=== PATIENT | female | born 1960 | race Caucasian/White ===

== ENCOUNTER 2021-04-29 09:59 | Outpatient (CLI) | payer BC, SELFPAY ==
--- NOTE | ~2021-04-29 | DEXA_ITS ---
Bone Density Report Name: Maria Teresa Castillo Age: 60 Sex: Female Ethnicity: White Date of : 1960 Indication: osteopenia; postmenopausal Referring Provider: Natasha Luu Study: Bone densitometry was performed. Exam Date: April 29, 2021 Accession number: [id number] Bone Density: Region BMD T-score Z-score Classification AP Spine (L1-L4) 0.888 -1.4 0.0 Osteopenia Femoral Neck (Left) 0.805 -0.4 0.9 Normal Total Hip (Left) 0.986 0.4 1.3 Normal Total Hip Bilateral Avg 0.976 0.3 1.3 Normal Femoral Neck (Right) 0.803 -0.4 0.9 Normal Total Hip (Right) 0.965 0.2 1.2 Normal World Health Organization criteria for BMD impression classify patients as: Normal (T-score at or above -1.0), Osteopenia (T-score between -1.0 and -2.5), or Osteoporosis (T-score at or below -2.5). 10-year Fracture Risk(1): Major Osteoporotic Fracture 6.4% Hip Fracture 0.2% Reported Risk Factors: [place] (), Neck BMD=0.803, BMI=31.9 (1) FRAX(R) Version 3.08. Fracture probability calculated for an untreated patient. Fracture probability may be lower if the patient has received treatment. Previous Exams: Region Exam Age BMD T-score BMD Change BMD Change Date g/cm2 vs Baseline vs Previous AP Spine(L1-L4) 04/29/2021 60 0.888 -1.4 -0.110(-11.0%) -0.034(-3.7%)* 12/02/2017 57 0.922 -1.1 -0.076(-7.6%)# -0.064(-6.5%)# 10/10/2012 52 0.985 -0.6 -0.012(-1.2%)# -0.012(-1.2%)# 01/08/2006 45 0.998 -0.4 Total Hip(Left) 04/29/2021 60 0.986 0.4 -0.127(-11.4%) -0.054(-5.2%)* 12/02/2017 57 1.040 0.8 -0.073(-6.5%)# -0.084(-7.5%)# 10/10/2012 52 1.124 1.5 0.012(1.1%)# 0.012(1.1%)# 01/08/2006 45 1.112 1.4 Total Hip(Right) 04/29/2021 60 0.965 0.2 -0.106(-9.9%)# -0.042(-4.1%)* 12/02/2017 57 1.006 0.5 -0.064(-6.0%)# -0.051(-4.9%)# 10/10/2012 52 1.058 0.9 -0.013(-1.2%)# -0.013(-1.2%)# 01/08/2006 45 1.070 1.1 *Denotes significance at 95% confidence level, LSC for AP Spine = 0.022 g/cm2, LSC for Total Hip = 0.027 g/cm2 Clinical Information Provided by Patient: Has used the following medications: Vitamin D Patient maximum height was 63.5 Menopause Age: 53 No regular weight bearing exercise Onset of menses at age 11 Number of children 3 Impression: The patient has low bone mass, based on the Total Spine T-score. The patient has an estimated ten-year risk of hip fracture of 0.2% and an estimated
== END 2021-04-29 10:00 | disposition home or self-care (01) ==
PROVIDERS: PCP Family Medicine; Visit Provider Student in an Organized Health Care Education/Training Program
DX: Z78.0 Asymptomatic menopausal state (principal); M85.88 Other specified disorders of bone density and structure, other site
CPT/HCPCS: 77080

== ENCOUNTER → 2021-08-26 02:23 | Outpatient (CLI) | payer BC, SELFPAY ==
[2021-08-27 12:27] LABS: SARS-CoV-2 RNA PCR Negative
== END ==
PROVIDERS: PCP Family Medicine; Visit Provider Family Medicine
DX: Z20.822 Contact with and (suspected) exposure to COVID-19 (principal)
CPT/HCPCS: C9803; U0003; U0005

== ENCOUNTER 2021-09-08 11:15 | Emergency (ER) | payer BC, SELFPAY ==
[2021-09-08 11:47] VITALS: BP 148/71; PULSE 75; RESP 15; TEMP 37.1; O2SAT 98
--- NOTE | 2021-09-08 12:09 | ED.EPISTAXIS ---
HPI - Epistaxis General Chief complaint: Epistaxis Stated complaint: NOSEBLEED X2.5HOURS Time Seen by Provider: 09/08/21 11:53 Source: patient Mode of arrival: ambulatory Limitations: no limitations History of Present Illness HPI Narrative: Patient is a 61-year-old female complaining of nosebleed that started this morning. Patient states that she has had similar episodes in the past. Patient states it runs in the family because of the blood vessels close to the front . Patient denies being on any oral anticoagulants. He denies taking any antiplatelet drugs. Patient denies any injury to the area. Patient denies hemoptysis, hematemesis, melena or hematochezia. Related Data Home Medications Medication Instructions Recorded Confirmed amlodipine 5 mg tablet 5 mg PO DAILY 02/26/20 atenolol 25 mg tablet 25 mg PO DAILY 02/26/20 cholecalciferol (vitamin D3) 125 125 mcg PO DAILY 02/26/20 mcg (5,000 unit) capsule glucosamine-chondroitin 250 mg-200 2 tablet PO TID 02/26/20 mg tablet hydrochlorothiazide 25 mg tablet 25 mg PO DAILY 02/26/20 lansoprazole 15 mg capsule,delayed 15 mg PO DAILY 02/26/20 release loratadine 10 mg tablet 10 mg PO DAILY 02/26/20 metformin 500 mg tablet 500 mg PO DAILY 02/26/20 multivitamin 1 tablet PO DAILY 02/26/20 rosuvastatin 20 mg tablet 20 mg PO DAILY 03/12/21 Allergies Allergy/AdvReac Type Severity Reaction Status Date / Time Sulfa (Sulfonamide Allergy Mild HIVES Verified 09/08/21 11:47 Antibiotics) sulfamethoxazole Allergy Mild HIVES Verified 09/08/21 11:47 azithromycin Allergy Unknown unknown Verified 09/08/21 11:47 latex Allergy Unknown unknwn Verified 09/08/21 11:47 levofloxacin Allergy Unknown Unknown Verified 09/08/21 11:47 sulfamethizole Allergy Unknown unknown Verified 09/08/21 11:47 trimethoprim Allergy Unknown Unknown Verified 09/08/21 11:47 Review of Systems Review of Systems: All systems reviewed & are unremarkable except as noted in HPI and below Constitutional: Constitutional: Denies body ache(s), Denies chills, Denies excessive sweating, Denies fatigue, Denies fever(s), Denies headache(s), Denies lethargy, Denies malaise, Denies weakness and Denies weight loss Eyes: Eyes: Denies blurry vision, Denies change in vision and Denies loss of vision ENT: Denies dizziness, Denies ear discharge, Denies headache(s), Denies lip swelling, Denies nasal congestion, Denies neck pain, Denies throat swelling and Denies tongue swelling Cardiovascular: Cardiovascular: Denies chest pain, Denies chest pain at rest, Denies chest pain with activity, Denies diaphoresis, Denies rapid heart rate, Denies edema, Denies irregular heart rhythm, Denies lightheadedness, Denies palpitations, Denies dyspnea and Denies dyspnea on exertion Respiratory: Respiratory: Denies chest congestion, Denies cough, Denies hemoptysis, Denies dyspnea and Denies dyspnea on exertion Gastrointestinal: Gastrointestinal: Denies abdominal pain, Denies melena, Denies hematochezia, Denies diarrhea, Denies nausea, Denies vomiting and Denies hematemesis Musculoskeletal: Musculoskeletal: Denies abnormal gait, Denies deformity, Denies joint swelling, Denies limited range of motion, Denies neck pain and Denies numbness Neurologic: Denies Abnormal speech present, Denies abnormal gait, Denies confusion, Denies dizziness, Denies headache(s), Denies focal weakness, Denies loss of vision, Denies numbness, Denies Other visual disturbances, Denies Sensory deficit (Neuro) and Denies weakness Psychiatric: Psychiatric: Denies confusion, Denies depression, Denies auditory hallucinations, Denies homicidal ideation and Denies suicidal ideation Endocrine: Endocrine: Denies cold intolerance, Denies excessive sweating, Denies fatigue, Denies heat intolerance and Denies palpitations Hematologic/Lymphatic: Hematologic/Lymphatic: Denies easy bleeding and Denies easy bruising Allergic/Immunologic: Allergic/Immunologic: Denies lip swelling, Denies t
[2021-09-08] MEDS: OXYMETAZOLINE HCL 0.05% NAS 15 ML BTL (*BKC) 2 SPRAY NASAL (12:15)
[2021-09-08 12:56] LABS: Basophils Percent Auto 0.5 % (0.2-1.2); Eosinophils Absolute Auto 0.2 K/mm3 (0-0.3); Eosinophils Percent Auto 2.4 % (0-4.4); Immature Granulocyte Absolute 0.05 K/mm3 (0.00-0.031); Immature Granulocyte Percent A 0.6 % (0-0.5); Lymphocytes Absolute Auto 2.21 K/mm3 (0.9-3.2); Lymphocytes Percent Auto 28.3 % (18.3-44.2); Mean Corpuscular HGB Conc 33.3 g/dl (32-36); Mean Corpuscular Hemoglobin 29.1 pg (26-34); Mean Corpuscular Volume 87.2 fl (80-100); Mean Platelet Volume 9.8 fl (7.4-10.4); Monocytes Absolute Auto 0.5 K/mm3 (0.1-0.6); Monocytes Percent Auto 6.8 % (2.6-8.5); Neutrophils Absolute Auto 4.8 K/mm3 (1.3-6.7); Neutrophils Percent Auto 61.4 % (45.5-73.1); Platelet Count Result 306 k/mm3 (150-375); Red Blood Count 4.47 M/mm3 (4.2-5.4); Red Cell Distribution Width 14.2 % (11.5-14.5); White Blood Count 7.8 K/mm3 (4.5-10.0)
[2021-09-08 13:09] LABS: Prothrombin Time 13.2 Seconds (11.1-14.7)
[2021-09-08 13:10] LABS: Alanine Aminotransferase 40 U/L (4-35); Albumin Level 4.8 g/dL (3.5-5.1); Alkaline Phosphatase 73 U/L (38-126); Anion Gap 13 mmol/L (8-16); Aspartate Amino Transferase 41 U/L (14-36); Bilirubin,Total 0.5 mg/dL (0.2-1.3); Blood Urea Nitrogen 17 mg/dL (7-17); Calcium 9.4 mg/dL (8.4-10.2); Carbon Dioxide 24 mmol/L (22-30); Chloride 100 mmol/L (98-107); Estimated CRCL calculation 98 ml/min; Estimated Glomerular Filt Rate > 60; Glucose 134 mg/dL (65-110); Partial Thromboplastin Time 28.5 SECONDS (22.3-36.8); Sodium 137 mmol/L (137-145)
== END 2021-09-08 14:30 | disposition home or self-care (01) ==
PROVIDERS: Emergency Provider Emergency Medicine; PCP Family Medicine
DX: R04.0 Epistaxis (principal); E78.5 Hyperlipidemia, unspecified; I10 Essential (primary) hypertension; Z79.84 Long term (current) use of oral hypoglycemic drugs
CPT/HCPCS: 36415; 80053; 85025; 85610; 85730; 99283; A9270

== ENCOUNTER 2022-11-01 00:05 | Day surgery (SDC) | payer BC, SELFPAY ==
[2022-10-18 09:58] VITALS: BMI 31.0
[2022-11-01 06:43] VITALS: BP 126/66; PULSE 64; RESP 16; TEMP 36.4; O2SAT 99; BMI 30.5
[2022-11-01] MEDS: LACTATED RINGERS 1,000 ML 150 ML IV CONT (06:54)
[2022-11-01 06:57] LABS: Glucose Point of Care 124 mg/dl (65-105)
--- NOTE | 2022-11-01 07:47 | WPDANESEPPF ---
Anes - Initial Pre Proc Eval Procedure: Operation Date: 11/01/22 08:00 Proposed Procedures p Colonoscopy - Jason Stapleton MD Date/Time: 11/01/22 07:47 Surgeon: Jason Stapleton MD Pre Op Diagnosis: family hx colon ca Patient Data Age: 62 Gender: F Height: 1.6 m Weight: 78.3 kg Last Vital Signs Temp 36.4 C 11/01/22 06:43 Pulse 64 11/01/22 06:43 Resp 16 11/01/22 06:43 BP 126/66 11/01/22 06:43 Pulse Ox 99 11/01/22 06:43 O2 Del Method Room Air 11/01/22 06:43 Allergies Allergy/AdvReac Type Severity Reaction Status Date / Time azithromycin Allergy Intermediate Hives Verified 11/01/22 06:42 levofloxacin Allergy Intermediate Hives Verified 11/01/22 06:42 sulfamethizole Allergy Intermediate Hives Verified 11/01/22 06:42 trimethoprim Allergy Intermediate Hives Verified 11/01/22 06:42 Sulfa (Sulfonamide Allergy Mild HIVES Verified 11/01/22 06:42 Antibiotics) sulfamethoxazole Allergy Mild HIVES Verified 11/01/22 06:42 latex AdvReac Intermediate Redness of Verified 11/01/22 06:42 Skin Home Medications Medication Instructions Recorded Confirmed Type amlodipine 5 mg tablet 5 mg PO DAILY 02/26/20 11/01/22 History atenolol 25 mg tablet 25 mg PO DAILY 02/26/20 11/01/22 History cholecalciferol (vitamin D3) 125 125 mcg PO DAILY 02/26/20 11/01/22 History mcg (5,000 unit) capsule hydrochlorothiazide 25 mg tablet 25 mg PO DAILY 02/26/20 11/01/22 History loratadine 10 mg tablet (Claritin) 10 mg PO DAILY 02/26/20 11/01/22 History metformin 500 mg tablet 500 mg PO DAILY 02/26/20 11/01/22 History multivitamin (Multiple Vitamins 1 tablet PO DAILY 02/26/20 11/01/22 History tablet) rosuvastatin 20 mg tablet (Crestor) 20 mg PO DAILY 03/12/21 11/01/22 History glucosamine 750 [id number] 1 tablet PO DAILY 09/20/22 11/01/22 History no1 644 mg-C 30 mg-niraj 1 mg tablet (Osteo Bi-Flex Triple Strength) valacyclovir 500 mg tablet 500 mg PO BID PRN FLARE UP 09/20/22 11/01/22 History (Valtrex) lansoprazole 30 mg capsule,delayed 30 mg PO DAILY 10/18/22 11/01/22 History release Laboratory Tests 11/01/22 06:49 POC Capillary Glucose 124 mg/dl H mg/dl (65-105) Patient hx anesthesia problems: none Family hx anesthesia problems: none Results Review: All pre-operative results and documents have been reviewed as part of the pre-operative evaluation. [facility] Past Medical History Medical History (Updated 09/20/22 @ 15:07 by Juan Escobar MD) Abnormal results of liver function studies Allergic rhinitis, unspecified Encounter for gynecological examination (general) (routine) without abnormal findings Family history of colon cancer Gastro-esophageal reflux disease without esophagitis Genital herpes Hyperlipidemia Hypertension Osteoarthritis of knee, unspecified Prediabetes Type 2 diabetes mellitus Surgical History Surgical History History of arthroscopy of left knee History of section x 3 History of dilation and curettage History of tubal ligation Family History Family History Mother Hypertension Family history of elevated blood lipids Family history of diabetes mellitus in first degree relative Grandparent Cerebrovascular accident, Onset Age: 90 Family history of malignant neoplasm of breast, Onset Age: 81 Father Carcinoma of colon Family history of diabetes mellitus in first degree relative Social History Social History Smoking status: Never smoker Second hand tobacco smoke exposure: No Alcohol intake: current Substance use: never Substance use type: does not use Living arrangements: with family Spiritual care concerns: No Anes - Eval Final PreProcedure Day of Procedure 11/01/22 07:47 Patient weight: obese Heart: regular r
--- NOTE | 2022-11-01 07:57 | PM.HPGS ---
History of Present Illness History of Present Illness Consent: Risks, benefits, and alternatives have been discussed and questions answered. Patient agrees to proceed with procedure. Chief complaint: family hx colon ca Narrative: Maria Teresa Castillo is a 62 year old female Presents for screening colonoscopy. Family history is significant her father had colon cancer. Patient reports her current weight appetite and bowel movements are normal. Patient denies abdominal pain. She has had no bleeding. Family history is as stated. Review of Systems Review of Systems: Review of systems noncontributory. [facility] Past Medical History Medical History (Updated 09/20/22 @ 15:07 by Juan Escobar MD) Abnormal results of liver function studies Allergic rhinitis, unspecified Encounter for gynecological examination (general) (routine) without abnormal findings Family history of colon cancer Gastro-esophageal reflux disease without esophagitis Genital herpes Hyperlipidemia Hypertension Osteoarthritis of knee, unspecified Prediabetes Type 2 diabetes mellitus Surgical History Surgical History History of arthroscopy of left knee History of section x 3 History of dilation and curettage History of tubal ligation Family History Family History Mother Hypertension Family history of elevated blood lipids Family history of diabetes mellitus in first degree relative Grandparent Cerebrovascular accident, Onset Age: 90 Family history of malignant neoplasm of breast, Onset Age: 81 Father Carcinoma of colon Family history of diabetes mellitus in first degree relative Social History Social History Smoking status: Never smoker Second hand tobacco smoke exposure: No Alcohol intake: current Substance use: never Substance use type: does not use Living arrangements: with family Spiritual care concerns: No Meds Home Medications and Allergies Home Medications Medication Instructions Recorded Confirmed Type amlodipine 5 mg tablet 5 mg PO DAILY 02/26/20 11/01/22 History atenolol 25 mg tablet 25 mg PO DAILY 02/26/20 11/01/22 History cholecalciferol (vitamin D3) 125 125 mcg PO DAILY 02/26/20 11/01/22 History mcg (5,000 unit) capsule hydrochlorothiazide 25 mg tablet 25 mg PO DAILY 02/26/20 11/01/22 History loratadine 10 mg tablet (Claritin) 10 mg PO DAILY 02/26/20 11/01/22 History metformin 500 mg tablet 500 mg PO DAILY 02/26/20 11/01/22 History multivitamin (Multiple Vitamins 1 tablet PO DAILY 02/26/20 11/01/22 History tablet) rosuvastatin 20 mg tablet (Crestor) 20 mg PO DAILY 03/12/21 11/01/22 History glucosamine 750 ri-cklpkzhbcbp-iun 1 tablet PO DAILY 09/20/22 11/01/22 History no1 644 mg-C 30 mg-niraj 1 mg tablet (Osteo Bi-Flex Triple Strength) valacyclovir 500 mg tablet 500 mg PO BID PRN FLARE UP 09/20/22 11/01/22 History (Valtrex) lansoprazole 30 mg capsule,delayed 30 mg PO DAILY 10/18/22 11/01/22 History release Allergies Allergy/AdvReac Type Severity Reaction Status Date / Time azithromycin Allergy Intermediate Hives Verified 11/01/22 06:42 levofloxacin Allergy Intermediate Hives Verified 11/01/22 06:42 sulfamethizole Allergy Intermediate Hives Verified 11/01/22 06:42 trimethoprim Allergy Intermediate Hives Verified 11/01/22 06:42 Sulfa (Sulfonamide Allergy Mild HIVES Verified 11/01/22 06:42 Antibiotics) sulfamethoxazole Allergy Mild HIVES Verified 11/01/22 06:42 latex AdvReac Intermediate Redness of Verified 11/01/22 06:42 Skin Vital Signs Vital Signs - 24 hr 11/01/22 06:43 Temperature 97.6 F Pulse Rate 64 Respiratory Rate 16 Blood Pressure 126/66 Pulse Oximetry 99 Oxygen Delivery Room Air Exam Narrative: Physical exam reveals patient to be alert. Vital signs
[2022-11-01 08:20] VITALS: BP 108/60; PULSE 62; RESP 20; O2SAT 98
[2022-11-01 08:30] VITALS: BP 122/72; PULSE 56; RESP 22; O2SAT 98
[2022-11-01 08:40] VITALS: BP 122/72; PULSE 54; RESP 22; O2SAT 100
== END 2022-11-01 08:51 | disposition home or self-care (01) ==
PROVIDERS: PCP Family Medicine; Visit Provider Internal Medicine Gastroenterology
PROC: 0DJD8ZZ Inspection of Lower Intestinal Tract, Via Natural or Artificial Opening Endoscopic (ICD-10-PCS; CPT 45378; principal; 2022-11-01 08:00)
DX: Z12.11 Encounter for screening for malignant neoplasm of colon (principal); K64.8 Other hemorrhoids; K57.30 Diverticulosis of large intestine without perforation or abscess without bleeding; Z80.0 Family history of malignant neoplasm of digestive organs; Z79.84 Long term (current) use of oral hypoglycemic drugs; I10 Essential (primary) hypertension; E78.5 Hyperlipidemia, unspecified; E11.9 Type 2 diabetes mellitus without complications; K21.9 Gastro-esophageal reflux disease without esophagitis; B00.9 Herpesviral infection, unspecified; E66.9 Obesity, unspecified; Z68.30 Body mass index [BMI] 30.0-30.9, adult
CPT/HCPCS: 45378; 82948; J2704; J7120

== ENCOUNTER 2023-10-19 07:43 | Outpatient (CLI) | payer BC, SELFPAY ==
--- NOTE | ~2023-10-19 | DEXA_ITS ---
Bone Density Report Name: SHEILA ORONA Age: 63 Sex: Female Ethnicity: White Date of : 1960 Indication: osteopenia; Referring Provider: DEMETRIA CANNON Study: Bone densitometry was performed. Exam Date: October 19, 2023 Accession number: [id number] Bone Density: Region BMD T-score Z-score Classification AP Spine(L1-L4) 0.825 -2.0 -0.4 Osteopenia Femoral Neck (Left) 0.809 -0.4 1.1 Normal Total Hip (Left) 1.097 1.3 2.4 Normal Femoral Neck (Right) 0.828 -0.2 1.2 Normal Total Hip (Right) 1.021 0.6 1.8 Normal Total Hip Mean 1.059 1.0 2.1 Normal World Health Organization criteria for BMD impression classify patients as: Normal (T-score at or above -1.0), Osteopenia (T-score between -1.0 and -2.5), or Osteoporosis (T-score at or below -2.5). 10-year Fracture Risk(1): Major Osteoporotic Fracture 6.8% Hip Fracture 0.3% Reported Risk Factors: [place] (), Neck BMD=0.809, BMI=29.3 (1) FRAX(R) Version 3.08. Fracture probability calculated for an untreated patient. Fracture probability may be lower if the patient has received treatment. Previous Exams: Region Exam Age BMD T-score BMD Change BMD Change Date g/cm2 vs Baseline vs Previous AP Spine (L1-L4) 10/19/2023 63 0.825 -2.0 -0.096 (-10.4% -0.063 (-7.0%) 04/29/2021 60 0.888 -1.4 -0.034 (-3.7%) -0.034 (-3.7%) 12/02/2017 57 0.922 -1.1 Total Hip(Left) 10/19/2023 63 1.097 1.3 0.057 (5.5%)* 0.111 (11.2%)* 04/29/2021 60 0.986 0.4 -0.054 (-5.2%) -0.054 (-5.2%) 12/02/2017 57 1.040 0.8 Total Hip(Right) 10/19/2023 63 1.021 0.6 0.014 (1.4%) 0.056 (5.8%)* 04/29/2021 60 0.965 0.2 -0.042 (-4.1%) -0.042 (-4.1%) 12/02/2017 57 1.006 0.5 *Denotes significance at 95% confidence level, LSC for AP Spine = 0.022 g/cm2, LSC for Total Hip = 0.027 g/cm2 Clinical Information Provided by Patient: Has used the following medications: Vitamin D Patient maximum height was 63.5 Menopause Age: 53 No regular weight bearing exercise Onset of menses at age 11 Number of children 3 Impression: The patient has low bone mass, based on the Total Spine T-score. The patient has an estimated ten-year risk of hip fracture of 0.3% and an estimated ten-year risk of major fracture of 6.8%, based on the WHO FRAX algorithm. The BMD for the AP Spine (L1-L4) decreased, changing by -7.0% since the last DXA exam. Discussion: BONE DENSI
== END 2023-10-19 07:44 | disposition home or self-care (01) ==
PROVIDERS: PCP Family Medicine; Visit Provider Obstetrics & Gynecology
DX: M85.89 Other specified disorders of bone density and structure, multiple sites (principal)
CPT/HCPCS: 77080

== ENCOUNTER 2024-05-01 11:36 | Outpatient (CLI) | payer BC, SELFPAY ==
--- NOTE | ~2024-05-01 | XR_ITS ---
EXAMINATION: XR chest 2V 05/01/2024 12:10 INDICATION: Cough PROCEDURE: 2 view chest COMPARISON: 12/07/2011 FINDINGS: The lungs are clear. The cardiomediastinal silhouette is within normal limits. There are no pleural effusions. There is no pneumothorax suspected. IMPRESSION: 1: NO ACUTE CARDIOPULMONARY DISEASE. Reviewed, dictated and finalized at location B.
== END 2024-05-01 11:37 | disposition home or self-care (01) ==
PROVIDERS: PCP Family Medicine; Visit Provider Family Medicine
DX: R05.9 Cough, unspecified (principal)
CPT/HCPCS: 71046

== ENCOUNTER 2024-07-13 13:42 | Outpatient (CLI) | payer BC, SELFPAY ==
--- NOTE | ~2024-07-13 | US_ITS ---
EXAM: PELVIC ULTRASOUND HISTORY: R10.2 - Pelvic and perineal pain 4 para 3. Postmenopausal. Post right oophorectomy COMPARISON: None. FINDINGS: UTERUS: 6.3 x 2.8 x 3.9 cm. The uterus is anteverted and anteflexed. The endometrial complex measures 4.4 mm - not thickened. Multiple fibroids are identified within the uterus. The largest is within the subserosal space along the posterior fundus measuring 12 x 6 x 13 mm. RIGHT OVARY: Surgically absent. LEFT OVARY: The left ovary is mildly increased in size (for patient of this age) measuring 3.1 x 1.5 x 2.7 cm Both arterial and venous flow are identified. Within the left adnexa is a rounded avascular focus with an echogenic rim measuring 13 x 12 x 14 mm, and is inseparable from the anterior margin of the left ovary. No free fluid is identified within the pelvis. IMPRESSION: Fibroid uterus. 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 Given the dense calcifications, MRI may not provide much additional information. Of note, multiple calcified phleboliths were identified on plain film evaluation of the abdomen and p margaux in 2011, but none meet the size criteria of the above abnormality. Reviewed, dictated and finalized at location A. [facility] IMPRESSION: Fibroid uterus. 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 Given t he dense calcifications, MRI may not provide much additional information. Of note, multiple calcified phleboliths were identified on plain film evaluatio n of the abdomen and pelvis in 2011, but none meet the size criteria of the abo ve abnormality.
== END 2024-07-13 13:43 | disposition home or self-care (01) ==
LOC: MICIMG 13:43
PROVIDERS: PCP Family Medicine; Visit Provider Nurse Practitioner Family
DX: D25.9 Leiomyoma of uterus, unspecified (principal); N83.8 Other noninflammatory disorders of ovary, fallopian tube and broad ligament
CPT/HCPCS: 76830; 76856

== ENCOUNTER 2024-07-18 13:53 | Outpatient (CLI) | payer BC, SELFPAY ==
[2024-07-19 06:54] LABS: CA-125 6 U/mL (<35)
== END 2024-07-18 13:54 | disposition home or self-care (01) ==
LOC: ANHLAB 13:54
PROVIDERS: PCP Family Medicine; Visit Provider Obstetrics & Gynecology
DX: N83.8 Other noninflammatory disorders of ovary, fallopian tube and broad ligament (principal)
CPT/HCPCS: 36415; 86304

== ENCOUNTER 2024-10-21 21:25 | Emergency (ER) | payer BC, SELFPAY ==
--- OUTSIDE RECORDS SUMMARY | 2024-10-21 21:27 | XMS_ITS | Referral Summary ---
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 Name Role Phone Juan Escobar MD Primary Care Provider [phone] Aniceto Knapp MD Unavailable [phone] Allergies Active Allergy Reactions Criticality Noted Date Comments Azithromycin Sulfa (Sulfonamide Antibiotics) Sulfamethoxazole-Trimethoprim Medications amlodipine-ator vastatin (CADUET) 5-40 mg per tablet Take 1 tablet by mouth daily 01/01/2019 Active atenolol (TENORMIN) 25 mg tablet Take 1 tablet (25 mg total) by mouth daily 11/22/2018 Active cholecalciferol (VITAMIN D-3) 10,000 unit tablet Active hydroCHLOROthia zide (HYDRODIURIL) 25 mg tablet Take 1 tablet (25 mg total) by mouth daily 11/22/2018 Active lansoprazole (PREVACID) 30 mg capsule Take 1 capsule (30 mg total) by mouth daily 01/01/2019 Active metFORMIN (GLUCOPHAGE) 500 mg tablet Active amLODIPine (NORVASC) 5 mg tablet Take 1 tablet (5 mg total) by mouth daily 02/05/2020 Active atorvastatin (LIPITOR) 20 mg tablet Take 1 tablet (20 mg total) by mouth daily 02/05/2020 Active rosuvastatin (CRESTOR) 20 mg tablet Take 1 tablet (20 mg total) by mouth daily 04/02/2023 Active valACYclovir (VALTREX) 500 mg tablet Take 1 tablet (500 mg total) by mouth daily 06/01/2023 Active Active Problems Problem Noted Date Diagnosed Date History of abnormal mammogram 03/06/2021 Breast cancer screening by mammogram 03/06/2021 Fibrocystic breast changes of both breasts 01/26 Abnormal mammogram 06/19/2010 Social History Tobacco Use Types Packs/Day Years Used Date Smoking Tobacco: Never Tobacco Cessation:Counseling Given: Not Answered Personal Safety Answer Date Recorded Getting School Help Needed Not on file 11/11 Comments No Sex and Gender Information Value Date Recorded Sex Assigned at Not on file Legal 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 Gender Identity Not on file Sexual Orientation Not on file Last Filed Vital Signs Vital Sign Reading Time Taken Comments Blood Pressure - - Pulse - - Temperature - - Respiratory Rate - - Oxygen Saturation - - Inhaled Oxygen Concentration - - Weight 81.6 kg (180 lb) 06/13/2023 2:39 PM CDT Height 160 cm (5' 3 ) 06/13/2023 2:39 PM CDT Body Mass Index 31.89 06/13/2023 2:39 PM CDT Plan of Treatment Not on file Procedures Procedure Name Priority Date/Time Associated Diagnosis Comments SCREENING MAMMOGRAM BILATERAL W SHARAN Schedule Routine, Read Routine (OP Routine) 06/15/2024 12:26 PM CDT Fibrocystic breast changes of both breasts from Last 3 Months or Most Recently Relevant to Health Maintenance Results * Screening Mammogram Bilateral W Sharan (06/15/2024 12:26 PM CDT) Anatomical Region Laterality Modality Breast Bilateral Mammography Narrative 06/18/2024 9:45 AM CDT Mammogram Technique: Bilateral Digital Breast Tomosynthesis, Bilateral C-view 2D Screening mammogram. Views obtained: bilateral craniocaudal and bilateral mediolateral oblique. Computer Aided Detection was performed. Mammogram Findings: The present examination has been compared to prior imaging studies performed at [facility] on 04/26/2022, 06/13/2023 and 07/08/2023. There are scattered areas of fibroglandular density. There are multiple masses in the left breast. There are no significant changes from the prior study. There is no suspicious abnormality in either breast. Impression: There is no mammographic evidence of malignancy. Annual screening mammography is recommended. OVERALL FINAL ASSESSMENT: BI-RADS CATEGORY 2: Benign. Procedure Note Trice Monroy MD - 06/18/2024 Mammogram Technique: Bilateral Digital Breast Tomosynthesis, Bilateral C-view 2D Screening mammogram. Views obtained: bilateral craniocaudal and bilateral mediolateral oblique. Computer Aided Detection was performed. Mammogram Findings: The present examination has been compared to prior imaging studies performed at [facility] on 04/26/2022, 06/13/2023 and 07/08/2023. There are scattered areas of fibroglandular density. There are multiple masses in the left breast. There are no significant changes from the prior study. There is no suspicious abnormality in either breast. Impression: There is no mammographic evidence of malignancy. Annual screening mammography is recommended. OVERALL FINAL ASSESSMENT: BI-RADS CATEGORY 2: Benign. Mery Tovar NP IMG MAMMO PROCEDURES Final Result from Last 3 Months or Most Recently Relevant to Health Maintenance Insurance [facility] ANTHEM ACCESS ANTHEM TRADITIONAL ACCESS OOS ANTHEM ACCESS Member Subscriber Plan / Payer ( fective 2015-Present) Name:Maria Teresa Orona Member ID:[id number] Relation to Subscriber:Spouse Name:TIO ORONA Subscriber ID:[id number] Date of :1962 (Home) Address: [facility] [place] [address] Payer ID:[id number] (NAIC) Type:[employer] Address: [address] [place] [id number] Care Teams Power Truck Driver Relationship Specialty Start Date End Date Juan Escobar MD [address] [place] [id number] PCP - General 12/10/16 Aniceto Knapp MD [address] [facility] [address] [facility] [address] [place] [address] Referring Physician Obstetrics and Gynecology 06/13/23
--- OUTSIDE RECORDS SUMMARY | 2024-10-21 21:28 | XMS_ITS | Clinical Summary ---
Author Organization [facility] Address [address] [place] [address] Care Team Providers Care Rolling Machine Operator Automatic Name Role Phone Juan Escobar MD Primary Care Provider [phone] Aniceto Knapp MD Unavailable [phone] Allergies Active Allergy Reactions Criticality Noted Date [...] of both breasts 01/26 Abnormal mammogram 06/19/2010 Family History Medical History Relation Name Comments Colon cancer Father Adenocarcinoma of colon - (Added by TW Conv)/Colon adenocarcinoma - (Added by TW Conv)/Adenocarcinoma of colon - (Added by TW Conv)/Colon adenocarcinoma - (Added by TW Conv) Relation Name Status Comments Father Social History Tobacco Use Types Packs/Day Years Used Date Smoking Tobacco: Never Tobacco Cessation:Counseling Given: Not Answered Personal Safety Answer Date Recorded Getting School Help Needed Not on file 11/11 Comments No Sex and Gender Information Value Date Recorded Sex Assigned at Not on file 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 Gender Identity Not on file Sexual Orientation Not on file Obstetrics History Last Filed Vital Signs Vital Sign Reading Time Taken Comments Blood Pressure - - Pulse - - Temperature - - Respiratory Rate - - Oxygen Saturation - - Inhaled Oxygen Concentration - - Weight 81.6 kg (180 lb) 06/13/2023 2:39 PM CDT Height 160 cm (5' 3 ) 06/13/2023 2:39 PM CDT Body Mass Index 31.89 06/13/2023 2:39 PM CDT Plan of Treatment Health Maintenance Due Date Last Done Comments Cervical Cancer Screening 1960 Colon Cancer Screening-Colonoscopy 1960 Depression Screening 1960 Hepatitis C Screening 1960 Hepatitis B Screening 1978 Regular Well Visit/Exam 18-64 1978 Zoster Vaccine (1 of 2) 2010 Influenza Vaccine (#1) 2024 9, 05/27/2017, 06/18/2015, Additional history exists Breast Cancer Screening-Mammogram 06/15/2025 06/15/2024, 06/13/2023, 04/26/2022, Additional history exists DTaP/Tdap/Td Vaccine (2 - Td or Tdap) 07/20/2029 07/20/2019 Pneumococcal vaccine <65 Aged Out No longer eligible based on patient's age to complete this topic Procedures Procedure Name Priority Date/Time Associated Diagnosis [...] compared to prior imaging studies performed at [facility] on 04/26/2022, 06/13/2023 and 07/08/2023. There are [...] compared to prior imaging studies performed at [facility] on 04/26/2022, 06/13/2023 and 07/08/2023. There are [...] Most Recently Relevant to Health Maintenance Insurance ANTHEM ACCESS ANTHEM ACCESS ANTHEM TRADITIONAL BLUE ACCESS OOS ANTH ACCESS Care Teams Rolling Machine Operator Automatic Relationship Specialty Start Date End Date Juan Esocbar MD [address] [place] [id number] PCP - General 12/10/16 Aniceto Knapp MD [address] [address] Referring Physician Obstetrics and Gynecology 06/13/23
[2024-10-21 21:31] VITALS: BP 140/68; PULSE 74; RESP 18; TEMP 36.7; O2SAT 97
--- NOTE | 2024-10-22 00:42 | PC.NURSE ---
Pt's came to ED desk stating they do not want to wait to be seen by MD. Pt AOx4. GCS 15. Pt ambulatory.
--- OUTSIDE RECORDS SUMMARY | 2024-10-22 00:49 | XMS_ITS | Clinical Summary ---
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 Gender Identity Not on file Sexual Orientation Not on file Plan of Treatment Health Maintenance Due Date Last Done Comments Hepatitis C Virus (HCV) Screening 1960 Pap Smear 1981 Cervical Cancer Screening (CCS) 1990 HPV/Cotest 1990 Colonoscopy 2005 Colorectal Cancer Screening 2005 Cologuard 2010 Immunochemical Fecal Occult Blood 2010 Mammogram 2010 Pneumococcal Immunization (50+ years) (1 of 1 - PCV) 2010 Zoster Immunization (1 of 2) 2010 Influenza Immunization (#1) 2024 10/0 12/2019, 06/02/2019, 05/27/2017, Additional history exists SARS-COV-2 Immunization ( - season) 2024 09/18/2020 Respiratory Syncytial Virus (RSV) Immunization (Adult) (1 - 1-dose 75+ series) 2035 DTaP/Tdap/Td Immunization Discontinued 07/20/2019 TdaP Immunization Completed 07/20/2019 Hepatitis B Immunization Aged Out No longer eligible based on patient's age to complete this topic Meningococcal Immunization (ACWY) Aged Out No longer eligible based on patient's age to complete this topic Pneumococcal Immunization Combined Aged Out No longer eligible based on patient's age to complete this topic Rotavirus Immunization Aged Out No lo nger eligible based on patient's age to complete this topic
--- OUTSIDE RECORDS SUMMARY | 2024-10-22 00:49 | XMS_ITS | Referral Summary ---
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 There [...] compared to prior imaging studies performed at [facility] on 04/26/2022, 06/13/2023 and 07/08/2023. There [...] Most Recently Relevant to Health Maintenance Insurance [facility] ANTHEM ACCESS ANTHEM TRADITIONAL ACCESS OOS ANTHEM ACCESS Member Subscriber Plan / Payer ( fective 2015-Present) Name:Maria Teresa Orona Member ID:[id number] Relation to Subscriber:Spouse Name:TIO ORONA Subscriber ID:[id number] Date of :1962 (Home) Address: [facility] [place] [address] Payer ID:[id number] (NAIC) Type:BC ALLIANCE Address: [address] [place] [id number] Care Teams Vehicle Detailer Relationship Specialty Start Date End Date Juan Escobar MD [address] [place] [address] PCP - General 12/10/16 Aniceto Knapp MD [address] [facility] [address] [facility] [address] [place] [address] Referring Physician Obstetrics and Gynecology 06/13/23
--- OUTSIDE RECORDS SUMMARY | 2024-10-22 00:49 | XMS_ITS | Clinical Summary ---
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 There [...] to prior imaging studies performed at [facility] on 04/26/2022, 06/13/2023 and 07/08/2023. There [...] BLUE ACCESS OOS ANTH ACCESS Care Teams Electrical And Instrument Mechanic Relationship Specialty Start Date End Date Juan Escobar MD [address] [place] [address] PCP - General 12/10/16 Aniceto Knapp MD [address] [address] Referring Physician Obstetrics and Gynecology 06/13/23
== END 2024-10-22 00:54 | disposition left against medical advice (07) ==
LOC: ANHED 10-22 00:47
PROVIDERS: PCP Family Medicine
DX: R11.2 Nausea with vomiting, unspecified (principal)
CPT/HCPCS: 99199

== ENCOUNTER 2024-11-16 11:41 | Outpatient (CLI) | payer BC, SELFPAY ==
--- NOTE | ~2024-11-16 | US_ITS ---
EXAMINATION: US pelvic complete w TV INDICATION: Follow-up left ovarian Comparison:Ultrasound dated 07/13/2024 TECHNIQUE: Multiple transabdominal and endovaginal sonographic images of the pelvis performed. FINDINGS: The uterus measures 7.2 x 3 x 4.3 cm. There is a small uterine fibroid posteriorly measurin g 12 mm. The endometrial complex measures 5 mm. The right ovary is surgically absent. Left ovary measures 3.1 x 2.3 x 2.8 cm with normal vascular nolan w. There is a calcified mass in the left ovary measuring 1.3 cm, nonspecific. Recommend correlation w ith MRI. There is no free fluid in the pelvis. There are no abnormal masses seen on either side. IMPRESSION: 1. Small uterine fibroid posteriorly measuring 12 mm. 2: Thickened endomtrial complex. The differential diagnosis includes endometrial hyperplasia, polyp a nd carcinoma. Biopsy is recommended. 3: Partially calcified 1.3 cm left ovarian mass, nonspecific. Consider correlation with MRI with and without contrast. Reviewed, dictated and finalized at location B. IMPRESSION: 1. Small uterine fibroid posteriorly measuring 12 mm. 2: Thickened endomtrial complex. The differential diagnosis includes endometria l hyperplasia, polyp and carcinoma. Biopsy is recommended. 3: Partially calcified 1.3 cm left ovarian mass, nonspecific. Consider correlat ion with MRI with and without contrast.
== END 2024-11-16 11:42 | disposition home or self-care (01) ==
LOC: MICIMG 11:41
PROVIDERS: PCP Family Medicine; Visit Provider Obstetrics & Gynecology
DX: D25.9 Leiomyoma of uterus, unspecified (principal); R93.89 Abnormal findings on diagnostic imaging of other specified body structures; N83.8 Other noninflammatory disorders of ovary, fallopian tube and broad ligament
CPT/HCPCS: 76830; 76856

== ENCOUNTER 2025-06-12 10:24 | Outpatient (CLI) | payer BC, SELFPAY ==
--- NOTE | 2025-06-12 10:30 | ECG_ITS ---
Test Date: 2025-06-12 10:34:07 Measurements Intervals [place] Rate: 68 P: 60 IA: 208 QRS: 30 QRSD: 88 T: 53 QT: 380 QTc: 406 Interpretive Statements SINUS RHYTHM BASELINE ARTIFACT- I, II, III, AVR, AVL, AVF NORMAL ECG No previous ECG available for comparison Electronically Signed On 06-12-2025 10:46:05 CDT by Rigoberto Gutierrez D.O.
[2025-06-12 11:04] LABS: Anion Gap 12 mmol/L (4-12); Blood Urea Nitrogen 17 mg/dL (7-17); Calcium 9.1 mg/dL (8.4-10.2); Carbon Dioxide 25 mmol/L (22-30); Chloride 101 mmol/L (98-107); Estimated Glomerular Filt Rate > 60; Glucose 163 mg/dL (65-110); Potassium 4.0 mmol/L (3.4-5.0); Sodium 138 mmol/L (137-145)
--- OUTSIDE RECORDS SUMMARY | 2025-06-12 12:14 | XMS_ITS | Clinical Summary ---
Author Organization [facility] Address [address] [place] [address] Care Team Providers Care Mangle Press Catcher Name Role Phone Juan Escobar MD Primary Care Provider [phone] Aniceto Knapp MD Unavailable [phone] Allergies Active Allergy Reactions Criticality Noted Date Comments Azithromycin Sulfa (Sulfonamide Antibiotics) Sulfamethoxazole-Trimethoprim Medications amlodipine-ator vastatin (CADUET) 5-40 mg per tablet Take 1 tablet by mouth daily 01/01/2019 Active atenolol (TENORMIN) 25 mg tablet Take 1 tablet (25 mg total) by mouth daily 1 11/22/2018 Active cholecalciferol (VITAMIN D-3) 10,000 unit [...] on file 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 Gender Identity Not on file Sexual Orientation Not on file Obstetrics History Last Filed Vital Signs Vital Sign Reading Time Taken Comments Blood Pressure - - Pulse - - Temperature - - Respiratory Rate - - Oxygen Saturation - - Inhaled Oxygen Concentration - - Weight 81.6 kg (180 lb) 06/13/2023 2:39 PM CDT Height 160 cm (5' 3) 06/13/2023 2:39 PM CDT Body Mass Index 31.89 06/13/2023 2:39 PM CDT Plan of Treatment Health Maintenance Due Date Last Done Comments Cervical Cancer Screening 1960 Colon Cancer Screening-Colonoscopy 1960 Depression Screening 1960 Hepatitis C Screening 1960 Hepatitis B Screening 1978 Regular Well Visit/Exam 18-64 1978 Zoster Vaccine (1 of 2) 2010 Influenza Vaccine (#1) 2025 9, 05/27/2017, 06/18/2015, Additional history exists Breast [...] compared to prior imaging studies performed at [facility] on 04/26/2022, 06/13/2023 and 07/08/2023. There [...] compared to prior imaging studies performed at [facility] on 04/26/2022, 06/13/2023 and 07/08/2023. There [...] BLUE ACCESS OOS ANTH ACCESS Care Teams Mangle Press Catcher Relationship Specialty Start Date End Date Juan Escobar MD [address] [place] [address] PCP - General 12/10/16 Aniceto Knapp MD [address] [address] Referring Physician Obstetrics and Gynecology 06/13/23
--- OUTSIDE RECORDS SUMMARY | 2025-06-12 12:14 | XMS_ITS | Clinical Summary ---
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 Gender Identity Not on file Sexual Orientation Not on file Plan of Treatment Health Maintenance Due Date Last Done Comments Hepatitis C Virus (HCV) Screening 1960 Pap Smear 1981 Cervical Cancer Screening (CCS) 1990 HPV/Cotest 1990 Cologuard 2005 Colonoscopy 2005 Colorectal Cancer Screening 2005 Immunochemical Fecal Occult Blood 2005 Pneumococcal Immunization (50+ years) (1 of 1 - PCV) 2010 Zoster Immunization (1 of 2) 2010 Influenza Immunization (#1) 2025 100 02/2020, 06/02/2020, 06/02/2019, Additional history exists SARS-COV-2 Immunization ( - season) 2025 09/18/2020 Respiratory Syncytial Virus (RSV) Immunization (Adult) (1 - 1-dose 75+ series) 2035 DTaP/Tdap/Td Immunization Discontinued 07/20/2019 TdaP Immunization Completed 07/20/2019 Hepatitis B Immunization Aged Out No longer eligible based on patient's age to complete this topic Human Papillomavirus (HPV) Immunization Aged Out No longer eligible based on patient's age to complete this topic Meningococcal Immunization (ACWY) Aged Out No longer eligible based on patient's age to complete this topic Rotavirus Immunization Aged Out No lo nger eligible based on patient's age to complete this topic
== END 2025-06-12 10:25 | disposition home or self-care (01) ==
LOC: ANHSURGERY 10:27
PROVIDERS: Anesthesiology; PCP Family Medicine; Visit Provider Obstetrics & Gynecology
DX: Z01.818 Encounter for other preprocedural examination (principal); D25.9 Leiomyoma of uterus, unspecified; I10 Essential (primary) hypertension; Z79.899 Other long term (current) drug therapy
CPT/HCPCS: 36415; 80048; 86850; 86900; 86901; 93005

== ENCOUNTER 2025-06-19 00:05 | Day surgery (SDC) | payer BC, SELFPAY ==
[2025-06-11 10:17] VITALS: BMI 31.0
--- NOTE | 2025-06-11 10:17 | SUR.PREOP ---
[facility] has started construction of its new state of the art ER which will open Spring 2026. With this, we anticipate parking may be a challenge for some our surgical patients and families. Parking spaces are limited but are available for all Surgical, obstetrics, and ER patients sharing this lot. If you arrive and find you are having a hard time finding a parking space, please note that we understand the challenges, please drive around the hospital and park near Hospital Entrance 1. When you enter this entrance, you can ask a volunteer to direct or take you back to the surgical waiting area to check in. We appreciate everyone?s understanding of these expected challenges while we build for your future. Report to the Outpatient Waiting Room, entrance under the green pavilion located off [address], at time __6AM___ on date _06/19/25___. Planned Procedure Time: __730AM__.? Time changes happen often and if your time is changed the preop area will call you the afternoon before. - You and your visitor will be asked to self-screen and do not enter if you have any COVID symptoms. Please call surgeon if you need to reschedule. - A mask is optional within the hospital at this time. Patients may have clear liquids (water, carbonated beverages, clear teas, apple juice) until 3 hours prior to surgery with a maximum of 20 ounces. - No food from midnight until time of surgery and no smoking, or chewing tobacco (or any form of nicotine). No chewing gum, candy or mints. Take only the following medications with a SIP of water on the morning of surgery: _amlodipine, atenolol____ DO NOT STOP ANY OF YOUR OTHER PRESCRIPTION MEDICATIONS PRIOR TO SURGERY EXCEPT THE FOLLOWING Hold all vitamins and supplements for 3 days per anesthesiologist. Medications to discontinue per physician ___Pt stated Dr. Knapp is holding mounjaro last dose 05/30/25 Date to take last dose of vitamins__06/15/25 Please no make-up, nail vietnamese, hairspray, perfume, deodorant, or body powder the day of surgery.? No jewelry (including any body piercings) or valuables the day of surgery, leave them at home.? Please take a shower or bath the night before, or the morning of, surgery with an antibacterial soap.? Wear comfortable, loose fitting clothing.? - Jewelry must be removed prior to entering the operating room.? Rings and piercings that are not removed may be cut off. - The hospital will not accept responsibility for valuables.? - Please leave all valuables, including medications, at home the day of surgery. If you are going home after surgery, a licensed guard driver must drive you home.? - NO public transportation without another adult if you receive anesthesia. - We recommend that an adult stay with you for 24 hours following discharge. - We also recommend that you do not drive, make important decision, drink alcoholic beverages, or take any drugs that were not prescribed by your health care provider for at least 24 hours after your discharge time. Follow any additional instructions given to you from your surgeon. Telephone instructions given to __Maria Teresa__and asked if any additional questions and then verbalized understanding. Patient advised to call surgeon office or pre surgery nurse liaison [phone] if any additional questions.
--- OUTSIDE RECORDS SUMMARY | 2025-06-17 11:15 | XMS_ITS | Encounter Summary ---
Author Organization [facility] Address [address] [place] [address] Care Team Providers Care Locomotive Repairer Diesel Name Role Phone Juan Escobar MD Primary Care Provider [phone] Aniceto Knapp MD Unavailable [phone] Reason for Referral * Diagnostic Imaging (Routine) - Closed Specialty Diagnoses / Procedures Referred By Eduardo valerio Referred To Contact Diagnoses Fibrocystic breast changes of both breasts Procedures Screening Mammogram Bilateral W Mery Larsen NP [address] [facility] [id number] [place] [address] Phone: tel: fax: [address] [address] Referral ID Status Reason Start Date Expiration Date Visits Re quested Visits Authorized [id number] Closed 06/15/2024 07/15/2025 1 1 Reason for Visit * Diagnostic Imaging (Routine) - Closed Specialty Diagnoses / Procedures Referred By Eduardo valerio Referred To Contact Diagnoses Fibrocystic breast changes of both breasts Procedures Screening Mammogram Bilateral W Mery Larsen NP [address] [facility] [id number] [place] [address] Phone: tel: fax: [facility] [address] [facility] [place] [address] Referral ID Status Reason Start Date Expiration Date Visits Re quested Visits Authorized [id number] Closed 06/15/2024 07/15/2025 1 1 Encounter Details Date Type Department Care Team (Latest Contact Info) Description 06/17/2025 11:15 AM CDT - 06/17/2025 11:59 PM CDT Hospital Encounter [facility] - Breast Imaging [address] [facility] Floor [address] [place] [address] Fibrocystic breast changes of both breasts Discharge Disposition: Discharge to home or self care Social History Tobacco Use Types Packs/Day Years Used Date Smoking Tobacco: Never Passive Smoke Exposure: Never Smokeless Tobacco: Never Comments No Sex and Gender Information Value Date Recorded Sex Assigned at Not on file 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 Gender Identity Not on file Sexual Orientation Not on file documented as of this encounter Medications at Time of Discharge amLODIPine (NORVASC) 5 mg tablet Take 1 tablet (5 mg total) by mouth daily 02/05/2020 amlodipine-ator vastatin (CADUET) 5-40 mg per tablet Take 1 tablet by mouth daily 1 01/01/2019 atenolol (TENORMIN) 25 mg tablet Take 1 tablet (25 mg total) by mouth daily 1 11/22/2018 atorvastatin (LIPITOR) 20 mg tablet Take 1 tablet (20 mg total) by mouth daily 02/05/2020 cholecalciferol (VITAMIN D-3) 10,000 unit tablet ezetimibe (ZETIA) 10 mg tablet Take 1 tablet (10 mg total) by mouth daily 05/08/2025 hydroCHLOROthia zide (HYDRODIURIL) 25 mg tablet Take 1 tablet (25 mg total) by mouth daily 11/22/2018 lansoprazole (PREVACID) 30 mg capsule Take 1 capsule (30 mg total) by mouth daily 01/01/2019 metFORMIN (GLUCOPHAGE) 500 mg tablet Mounjaro 2.5 mg/0.5 mL pen injector injection 2.5 MG (0.5 ML) SUBCUTANEOUSLY WEEKLY FOR 4 WEEKS 05/29/2025 rosuvastatin (CRESTOR) 20 mg tablet Take 1 tablet (20 mg total) by mouth daily 04/02/2023 valACYclovir (VALTREX) 500 mg tablet Take 1 tablet (500 mg total) by mouth daily 06/01/2023 documented as of this encounter Discharge Disposition Disposition Code Departure Means Destination Discharge to home or self care documented in this encounter Plan of Treatment Not on file documented as of this encounter Procedures Procedure Name Priority Date/Time Associated Diagnosis Comments SCREENING MAMMOGRAM BILATERAL W SHARAN Schedule Routine, Read Routine (OP Routine) 06/17/2025 12:19 PM CDT Fibrocystic breast changes of both breasts documented in this encounter Results * Screening Mammogram Bilateral W Sharan (06/17/2025 12:19 PM CDT) Anatomical Region Laterality Modality Breast Bilateral Mammography Impressions 06/17/2025 12:13 PM CDT Bilateral No evidence of malignancy in either breast. OVERALL BI-RADS FINAL ASSESSMENT: 1 - Negative RECOMMENDATION: Recommend bilateral annual screening mammography. Narrative 06/17/2025 12:13 PM CDT EXAMINATION: Screening Mammogram Bilateral W Sharan: COMPARISON: TECHNIQUE: Mammography was performed with 2D and 3D digital breast tomosynthesis (DBT) images. CAD was utilized. BREAST PARENCHYMAL COMPOSITION: There are scattered areas of fibroglandular density. FINDINGS: Bilateral There is no suspicious mass, calcification, or architectural distortion in either breast. Mery Tovar SCRUB NURSE IMG MAMMO PROCEDURES Final Result documented in this encounter Visit Diagnoses Diagnosis Fibrocystic breast changes of both breasts documented in this encounter Care Teams Locomotive Repairer Diesel Relationship Specialty Start Date End Date Juan Escobar MD [address] [place] [address] PCP - General 12/10/16 Aniceto Knapp MD [address] [facility] [address] [place] [address] Referring Physician Obstetrics and Gynecology 06/13/23 documented as of this encounter
[2025-06-19] VITALS (13 sets, daily range): BP systolic 91–118; BP diastolic 43–62; PULSE 60–70; RESP 13–20; TEMP 36.1–36.9; O2SAT 94–98
--- OUTSIDE RECORDS SUMMARY | 2025-06-19 00:20 | XMS_ITS | Clinical Summary ---
Author Organization [facility] Address [address] [place] [address] Care Team Providers Care Can Crimper Name Role Phone Juan Escobar MD Primary Care Provider [phone] Aniceto Knapp MD Unavailable [phone] Allergies Active Allergy Reactions Criticality Noted Date Comments Azithromycin Sulfa (Sulfonamide Antibiotics) Sulfamethoxazole-Trimethoprim Medications amlodipine-nicho rvastatin (CADUET) 5-40 mg per tablet Take 1 tablet by mouth daily 9 Active atenolol (TENORMIN) 25 mg tablet Take 1 tablet (25 mg total) by mouth daily 1 9 Active cholecalcifero l (VITAMIN D-3) 10,000 unit tablet Active hydroCHLOROthi azide (HYDRODIURIL) 25 mg tablet Take 1 tablet (25 mg total) by mouth daily 1 9 Active lansoprazole (PREVACID) 30 mg capsule Take 1 capsule (30 mg total) by mouth daily 9 Active metFORMIN (GLUCOPHAGE) 500 mg tablet Active amLODIPine (NORVASC) 5 mg tablet Take 1 tablet (5 mg total) by mouth daily 0 Active atorvastatin (LIPITOR) 20 mg tablet Take 1 tablet (20 mg total) by mouth daily 0 Active rosuvastatin (CRESTOR) 20 mg tablet Take 1 tablet (20 mg total) by mouth daily 3 Active valACYclovir (VALTREX) 500 mg tablet Take 1 tablet (500 mg total) by mouth daily 3 Active Mounjaro 2.5 mg/0.5 mL pen injector injection 2.5 MG (0.5 ML) SUBCUTANEOUSLY WEEKLY FOR 4 WEEKS 5 Active ezetimibe (ZETIA) 10 mg tablet Take 1 tablet (10 mg total) by mouth daily 5 Active Active Problems Problem Noted Date Diagnosed Date History of abnormal mammogram 03/06/2021 Breast cancer screening by mammogram 03/06/2021 Fibrocystic breast changes of both breasts 01/26 Abnormal mammogram 06/19/2010 Encounters Date Type Department Care Team Description 06/17/2025 11:15 AM CDT - 06/17/2025 11:59 PM CDT Hospital Encounter [facility] - Breast Imaging [address] [place] [id number] Fibrocystic breast changes of both breasts Discharge Disposition: Discharge to home or self care 06/17/2025 11:00 AM CDT [facility] [address] [place] [phone] Mery Tovar NP Fibrocystic breast changes of both breasts (Primary Dx); Encounter for screening mammogram for malignant neoplasm of breast 06/17/2025 Results Follow-Up [facility] Medicine Surgery [address] [place] [address] [phone] Mery Tovar NP Screening Mammogram Bilateral W Sharan from Last 3 Months Immunizations Immunization Administration Dates Next Due Influenza, Quadrivalent, Spl it, Intramuscular 05/29/2022,06/02/2019,05/27/2017,06/18 Influenza, Quadrivalent, Spl it, Preservative Free, Intramuscular 06/03/2021,06/02/2020 Influenza, Trivalent, Cell Culture-based MDCK, Preservative Free, Antibiotic Free, Intramuscular 05/20/2023 Influenza, Trivalent, IM (MDV) 06/04/2020,2019,06/05/2014 Influenza, Trivalent, Preser vative Free, Intramuscular 05/31/2025,06/23/2024 Moderna SARS-CoV-2 Monovalen t Vaccination (12+ YRS) 05/27/2023,02/20/2022,07/22/2021,10/17,09/18/2020 Tdap 07/20/2019 ZOSTER Recombinant 08/08/2021,03/28/2021 Surgical History Surgery Date Site/Laterality Comments OOPHORECTOMY Right >10 years ago Family History Medical History Relation Name Comments Colon cancer Father Adenocarcinoma of colon - (Added by TW Conv)/Colon adenocarcinoma - (Added by TW Conv)/Adenocarcinoma of colon - (Added by TW Conv)/Colon adenocarcinoma - (Added by TW Conv) Breast cancer Maternal Grandmother Relation Name Status Comments Father Maternal Grandmother Social History Tobacco Use Types Packs/Day Years Used Date Smoking Tobacco: Never Passive Smoke Exposure: Never Smokeless Tobacco: Never Tobacco Cessation:Counseling Given: Not Answered Comments No Sex and Gender Information Value Date Recorded Sex Assigned at Not on file 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 Gender Identity Not on file Sexual Orientation Not on file Obstetrics History Para Term AB IAB SAB Ectopic Multiple Livin g Live Births 4 3 Date Outcome GA Total Labor Labor/2nd/3rd Weight Sex Type Anes PTL Paola A1 A5 Name Clin Last Filed Vital Signs Vital Sign Reading Time Taken Comments Blood Pressure - - Pulse - - Temperature - - Respiratory Rate - - Oxygen Saturation - - Inhaled Oxygen Concentration - - Weight 80.7 kg (178 lb) 06/17/2025 11:01 AM CDT Height 158.7 cm (5' 2.48) 06/17/2025 11:01 AM C DT Body Mass Index 32.06 06/17/2025 11:01 AM CDT Plan of Treatment Health Maintenance Due Date Last Done Comments Cervical Cancer Screening 1960 Colon Cancer Screening-Colonoscopy 1960 Depression Screening 1960 Hepatitis C Screening 1960 Hepatitis B Screening 1978 Regular Well Visit/Exam 18-64 1978 Covid-19 Vaccine ( season) 2025 05/27/2023, 02/20/2022, 07/22/2021, Additional history exists Breast Cancer Screening-Mammogram 06/17/2026 06/17/2025, 06/15/2024, 06/13/2023, Additional history exists DTaP/Tdap/Td Vaccine (2 - Td or Tdap) 07/20/2029 07/20/2019 Zoster Vaccine Completed 08/08/2021, 03/28/2021 Influenza Vaccine Completed 05/31/2025, , 05/20/2023, Additional history exists Pneumococcal vaccine <65 Aged Out No longer eligible based on patient's age to complete this topic Procedures Procedure Name Priority Date/Time Associated Diagnosis Comments SCREENING MAMMOGRAM BILATERAL W SHARAN Schedule Routine, Read Routine (OP Routine) 06/17/2025 12:19 PM CDT Fibrocystic breast changes of both breasts from Last 3 Months Results * Screening Mammogram Bilateral W Sharan [...] architectural distortion in either breast. Mery Tovar PROGRAM COORDINATOR FOR RESIDENCE LIFE IMG MAMMO PROCEDURES Final Result from Last 3 Months Insurance ANTH ACCESS ANTHEM ACCESS ANTHEM TRADITIONAL BLUE ACCESS OOS ANTHEM ACCESS Care Teams Can Crimper Relationship Specialty Start Date End Date Juan Escobar MD [address] [place] [id number] PCP - General 12/10/16 Aniceto Knapp MD [address] [facility] [address] [facility] [address] [place] [address] Referring Physician Obstetrics and Gynecology 06/13/23
--- OUTSIDE RECORDS SUMMARY | 2025-06-19 00:20 | XMS_ITS | Encounter Summary ---
Author Organization [facility] Address [address] [facility] [address] [place] [address] Phone Care Team Providers Care Instructional Specialist Name Role Phone Juan Escobar MD Primary Care Provider [phone] Aniceto Knapp MD Unavailable [phone] Encounter Details Date Type Department Care Team (Late st Contact Info) Description 06/17/2025 Results Follow-Up [facility] Medicine Surgery [address] [facility] Floor [address] [place] [address] Mery Tovar NP [address] [facility] [id number] [place] [address] Screening Mammogram Bilateral W Sharan Social History Tobacco Use Types Packs/Day Years Used Date Smoking Tobacco: Never Passive Smoke Exposure: Never Smokeless Tobacco: Never Comments No Sex and Gender Information Value Date Recorded Sex Assigned at Not on file 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
[2025-06-19] MEDS: ACETAMINOPHEN 500 MG TABLET 1000 MG PO ×3 (06:20→19:10)
[2025-06-19] MEDS: LACTATED RINGERS 1,000 ML 30 ML IV CONT ×2 (06:25→09:40)
--- NOTE | 2025-06-19 06:47 | WPDANESEPPF ---
Anes - Initial Pre Proc Eval Procedure: Operation Date: 06/19/25 07:30 Proposed Procedures p Robotic Assisted Laparoscopic Total Vaginal Hysterectomy with Bilateral Salpingectomy, Left Oophorectomy - Aniceto Knapp MD Date/Time: 06/19/25 06:47 Surgeon: Aniceto Knapp MD Pre Op Diagnosis: ovarian tumor, thickened endometrium strip Patient Data Age: 64 Gender: F Height: 1.6 m Weight: 81.05 kg Allergies Allergy/AdvReac Type Severity Reaction Status Date / Time azithromycin Allergy Intermediate Hives Verified 06/19/25 06:37 levofloxacin Allergy Intermediate Hives Verified 06/19/25 06:37 sulfamethizole Allergy Intermediate Hives Verified 06/19/25 06:37 trimethoprim Allergy Intermediate Hives Verified 06/19/25 06:37 Sulfa (Sulfonamide Allergy Mild HIVES Verified 06/19/25 06:37 Antibiotics) sulfamethoxazole Allergy Mild HIVES Verified 06/19/25 06:37 latex AdvReac Intermediate Redness of Verified 06/19/25 06:37 Skin NSAIDS (Non-Steroidal AdvReac Nose Bleed Verified 06/19/25 06:37 Anti-Inflamma Home Medications ?Medication ?Instructions ?Recorded ?Confirmed ?Type cholecalciferol (vitamin D3) 125 125 mcg PO DAILY 02/26/20 06/19/25 History mcg (5,000 unit) capsule loratadine 10 mg tablet (Claritin) 10 mg PO DAILY 02/26/20 06/19/25 History glucosamine 750 ut-mwbzhgayqlz-cir 1 tablet PO BID 12/12/23 06/19/25 History no1 644 mg-C 30 mg-niraj 1 mg tablet (Osteo Bi-Flex Triple Strength) multivitamin (Multiple Vitamins 1 tablet PO DAILY #90 tabs 12/12/23 06/19/25 Rx tablet) atenolol 25 mg tablet 25 mg PO DAILY #90 tabs 12/24/24 06/19/25 Rx rosuvastatin 20 mg tablet 20 mg PO DAILY #90 tabs 12/24/24 06/19/25 Rx amlodipine 5 mg tablet 5 mg PO DAILY #90 tabs 12/30/24 06/19/25 Rx hydrochlorothiazide 25 mg tablet 25 mg PO DAILY #90 tabs 02/13/25 06/19/25 Rx lansoprazole 30 mg capsule,delayed 30 mg PO DAILY #90 caps 02/13/25 06/19/25 Rx release clotrimazole-betamethasone 1 1 applic topical BID #15 grams 03/13/25 06/19/25 Rx %-0.05 % topical cream Mounjaro 2.5 mg/0.5 mL 2.5 mg (0.5 mL) subcut WEEKLY #2 mL 05/07/25 06/19/25 Rx subcutaneous pen injector (tirzepatide) ezetimibe 10 mg tablet 10 mg PO DAILY #90 tabs 05/08/25 06/19/25 Rx metformin 500 mg tablet 500 mg PO DAILY #180 tabs 05/08/25 06/19/25 Rx valacyclovir 500 mg tablet 500 mg PO DAILY #90 tabs 05/27/25 06/11/25 Rx (Valtrex) Laboratory Tests 06/19/25 06:27 POC Capillary Glucose 113 H mg/dl (65-105) Patient hx anesthesia problems: none Family hx anesthesia problems: none Results Review: All pre-operative results and documents have been reviewed as part of the pre-operative evaluation. [facility] Past Medical History Medical History Family history of colon cancer Type 2 diabetes mellitus without complication, without long-term current use of insulin Osteoarthritis of knee, unspecified Allergic rhinitis, unspecified Abnormal results of liver function studies Gastro-esophageal reflux disease without esophagitis Genital herpes Prediabetes Hyperlipidemia Hypertension Surgical History Surgical History History of lithotripsy 2004, 2006 History of salpingo-oophorectomy and appendectomy 1970 History of tubal ligation 1996 History of dilation and curettage History of arthroscopy of left knee History of section 1981, 1982, 1996 Family History Family History Mother Hypertension Family history of elevated blood lipids Family history of diabetes mellitus in first degree relative Grandparent Cerebrovascular accident, Onset Age: 90 Family history of malignant neoplasm of breast, Onset Age: 81 Father Carcinoma of colon Family history of diabetes mellitus in first degree relative Social History Social History Smoking status: Never smoker Second hand tobacco smoke exposure: No Alcohol intake: current Alcohol use details: when we go on vacation, less than one per week. Substance use: never Substance use type: does not use Do You Feel Safe in your Home?: Yes Lack of Transportation: No Lack of Food: Never True Current Housing: I Have Housing Concerned About Future Housing: No Difficulty Paying Gas/Electric Bills: No Difficulty Paying for Meds: No Currently Unemployed: No Education: High School Diploma/GED Difficulty w/ Childcare or Family Care: No Living arrangements: with family Occupation/Education: occupation Gender identity (if verbalized by the patient): Female Sexual Orientation (if Verbalized by the Patient): Straight or Heterosexual Spiritual care concerns: No Anes - Eval Final PreProcedure Day of Procedure 06/19/25 06:47 Patient weight: obese Heart: regular rate and rhythm Lungs: clear to auscultation Airway: Mallampati scale class II Neurological: alert and oriented Last oral intake: >/= 8 hours ASA classification: III Emergent: no Anesthetic plan: proceed Anesthesia type and monitoring: general ETT and standard monitoring Results Review: All pre-operative results and documents have been reviewed as part of the pre-operative evaluation. Informed Consent: The patient's anesthetic plan and its attendant risks and benefits were discussed with the patient/family/POA. Questions were solicited and answers provided to the satisfaction of the patient/family/POA.
[2025-06-19] MEDS: SCOPOLAMINE 1 MG PATCH 1 PATCH TRANSDERM (06:51)
--- NOTE | 2025-06-19 07:15 | WPDHPUPDATE1 ---
History and Physical Update Update Date/Time: 06/19/25 07:15 History and Physical has been reviewed, including an updated exam of the patient. There are NO changes in the patient's condition. Risks, benefits, and alternatives have been discussed and questions answered. Patient agrees to proceed with procedure.
[2025-06-19] MEDS: ENOXAPARIN 30 MG/0.3 ML SYRINGE SUB-Q (07:23)
[2025-06-19] MEDS: ceFAZolin 2 GM in SODIUM CHLORIDE 0.9% IV 50 ML 100 ML IVPB (07:32)
[2025-06-19] MEDS: metroNIDAZOLE 500 MG/ISO 100ML 500 MG/100 ML BAG 100 MG IVPB (07:43)
[2025-06-19] MEDS: BUPivacaine HCL 0.5% 10 ML AMP 20 ML INFILTRATE (08:43)
--- NOTE | 2025-06-19 08:48 | S_PTH ---
PATIENT: Maria Teresa Castillo LOC: [facility] U#:[id number] AGE/SX: 64/F ROOM: RE06/19/[address]: Aniceto Knapp MD : 1960 BED: DIS: 06/20/2025 SPEC #: [id number] RECD: 06/19/25 11:03 STATUS: JENNIFER REQ #: [id number] URIEL: 06/19/25 08:[address]: Aniceto Knapp DEPT: [facility] Surgical RECD BY: Sabina Macias ENTERED: 06/19/25 11:03 SP TYPE: Surgical OTHR DR: Juan Escobar MD Tissues: A - Uterus Procedures: Hematoxylin and Eosin Stain Gross and Microscopic Level 5
--- NOTE | 2025-06-19 09:44 | P.OP_ITS ---
Procedure Note - Detailed Date of Procedure 06/20/25 Pre-op Diagnosis ovarian tumor, thickened endometrium strip Post-op Diagnosis Same ( 3.Abdominal adhesions) Procedure Performed Laparoscopic robotic assisted total vaginal hysterectomy with left salpingo- oophorectomy 2. Lysis of adhesions Surgeon Aniceto Knapp MD Anesthesia General Indications ovarian mass and abnormal pelvic ultrasound and fibroid uterus Findings absent right tube and ovary adhesions of the mid abdomen to Annalise-intestinal and omental fat. Small 1 cm growth off of the left ovary firm. Smooth surface. Description of Procedure After informed consent was obtained she was taken to the operating room and general endotracheal anesthesia was administered. She was placed in low lithotomy position. An exam under anesthesia was performed. Uterus mildly enlarged retroverted, no adnexal masses palpated. She was and prepped and draped in sterile fashion. Aponte catheter placed in bladder. Attention was turned to the vagina speculum was inserted. Single-tooth tenaculum placed on anterior lip of the cervix the uterus sounded to 10 cm. The cervix was dilated to a 6 Kraft dilator. A size 6 uterine manipulator was inserted and secured. A size 3.0 colp cup was secured in the vagina. Then attention was turned to the abdomen with new sterile gloves. .5% marcaine injected subcutaneously. An incision was made horizontal 2 cm above the umbilicus. The subcutaneous tissue was dissected with S retractors. Anterior and posterior fascia grasped with Maria Dolores clamp and incised. Peritoneum entered. No adhesions palpated. The fascia sutures were secured with 0 vicryl. The robotic hysson port and camera inserted into abdomen and secured to fascial sutures. A Pneumoperitoneum of 15 mm per mercury was obtained. No abdominal or pelvic adhesions noted. A small incision was made approximately 6 cm lateral to the port on the left side of the port. A size 8mm robotic port was inserted under laparoscopic visualization into the abdomen on the left side. The right side of the bladder was dissected from the lower uterine segment and upper cervix. The right ovarian ligament was ligated with the vessel sealer. The a posterior leaf of the broad ligament was further dissected. The uterine vessels on the right were skeletonized. The ascending uterine vessels on the right were cauterized. The uterine vessels were ligated. Attention was turned to the left round ligament which was ligated and the anterior leaf of the broad ligament was dissected anteriorly. The rest of the vesicouterine peritoneum was dissected off of the uterus. Once the bladder was dissected below the colp cup then the posterior leaf of the broad ligament was further dissected. The ovarian ligament was ligated. The ascending uterine vessels were ligated with the syncroseal. The uterine arteries were skeletonized. The uterine arteries were ligated. The cardinal ligaments were ligated. This was done on both sides. An incision was made anterior colpotomy incision was made and this was carried around until the cervix was removed from the vagina. The uterus and cervix were removed through the vagina. The vaginal cuff was closed in a running fashion with 0 V lock suture. Hemostasis was noted. The pelvis was irrigated. Hemostasis noted. Hemoderm was applied in the pelvis. The patient was taken out of Trendelenburg position. The pneumoperitoneum was released and the ports were removed. The fascial stitch at the supraumbilical incision was approximated with O vicryl. The skin incisions were closed with 4 O Vicryl and skin glue. The patient was extubated in operating room. The sponge count was correct x2. Patient tolerated procedure well and was taken to recovery in stable condition. Estimated Blood Loss 20 Drains No Pathology Yes (uterus and cervix and left fallopian tube and ovary) Complications No immediate complications Disposition PACU [facility] Billing Surgery - Charge Forward: Surgery Billing
[2025-06-19] MEDS: fentaNYL CITRATE INJ (*CRX) 100 MCG/2 ML VIAL 25 MCG IV PUSH (10:36)
[2025-06-19] MEDS: DEXTROSE 5%/0.45% SOD CHL 1,000 ML 125 ML IV CONT ×2 (11:15→19:17)
[2025-06-19] MEDS: oxyCODONE HCL (*CRX) 5 MG TAB IR 10 MG PO (12:35)
[2025-06-19] MEDS: SIMETHICONE 80 MG TAB.CHEW PO (17:47)
[2025-06-19] MEDS: DOCUSATE SODIUM 100 MG CAPSULE PO (17:47)
[2025-06-19] MEDS: PANTOPRAZOLE 40 MG TABLET PO (22:15)
[2025-06-20 04:10] VITALS: BP 96/42; PULSE 69; RESP 15; TEMP 36.9; O2SAT 96
[2025-06-20] MEDS: ACETAMINOPHEN 500 MG TABLET 1000 MG PO ×2 (04:15→09:45)
[2025-06-20 07:30] VITALS: BP 114/48; PULSE 70; RESP 16; TEMP 37.3; O2SAT 94
[2025-06-20 08:00] VITALS: BP 114/48; PULSE 70; RESP 16; TEMP 37.3; O2SAT 94
[2025-06-20 09:45] VITALS: PULSE 74
[2025-06-20] MEDS: SIMETHICONE 80 MG TAB.CHEW PO (09:45)
[2025-06-20] MEDS: LORATADINE 10 MG TABLET PO (09:45)
[2025-06-20] MEDS: ROSUVASTATIN 20 MG TABLET PO (09:45)
[2025-06-20] MEDS: DOCUSATE SODIUM 100 MG CAPSULE PO (09:45)
[2025-06-20] MEDS: EZETIMIBE 10 MG TABLET PO (09:47)
[2025-06-20 09:52] VITALS: BP 114/70
--- NOTE | 2025-06-20 10:31 | WPDANESPN ---
Anes - Prog Note Post-Op Date/Time: 06/20/25 10:31 Cardiovascular status: normal Respiratory status: normal Airway patency: baseline Mental status: baseline Post-Op hydration status: normal Vital Signs: Last Vital Signs Temp 37.3 C 06/20/25 08:00 Pulse 74 06/20/25 09:45 Resp 16 06/20/25 08:00 BP 114/70 06/20/25 09:52 Pulse Ox 94 06/20/25 08:00 O2 Del Method Room Air 06/20/25 04:10 O2 Flow Rate 2 06/19/25 10:55 Pain Score (VAS): 3 I/O: Intake & Output 06/19/25 06/20/25 06/20/25 23:59 07:59 15:59 Intake Total 1000 Output Total 875 Balance 125 Post-procedural complaints: none Patient Feedback: Patient satisfied with anesthetic care.
--- NOTE | 2025-06-20 10:44 | PM.DS ---
DS: Admitting Diagnosis Discharge Date 06/20/25 Admitting Diagnosis Adnexal mass DS: Discharge Diagnosis Discharge Diagnosis (1) Fibroid uterus: Code(s): D25.9 - Leiomyoma of uterus, unspecified Status: Acute (2) Abnormal ultrasound of ovary: Code(s): R93.5 - Abnormal findings on diagnostic imaging of other abdominal regions, including retroperitoneum Status: Acute DS: Summary Hospital Course Reason for hospitalization: hysterectomy Hospital Course: She had an uncomplicated hysterectomy. She did well post op. She had adequate pain control, tolerating regular diet, ambulating, and positive flatus on POD1. She was discharge to home on post op Day 1. Status at Discharge Functional status at discharge: independent ambulation Time Spent with Patient Time attestation: Total time spent providing and/or coordinating discharge services: Exam Const: General: comfortable and no acute distress Orientation/consciousness: oriented to person, oriented to place and oriented to time Resp: Auscultation: clear to auscultation bilaterally Cardio: Rate: regular rate Rhythm: regular rhythm GI: GI Palp: Yes Soft to palpation Auscultation: normal bowel sounds Neuro: General: oriented to person, oriented to place and oriented to time Extrem: General: no calf tenderness Psych: Mental Status: mental status grossly normal DS: Data Data Completed and Pending Completed studies during hospitalization: Pending at discharge 06/19/25 08:48 Surgical [PTH] Routine Discharge Plan Discharge Patient Disposition: Home Discharge Instructions: May take over the counter Tylenol for pain. Remove the Scopolamine patch that was placed behind your ear in 72 hours or less. Wash your hands after touching. Patient Language: Indonesian Stand Alone Forms: General Discharge Instructions Discharge Medications: New oxycodone 5 mg Tablet 5 mg PO Q4H PRN (Reason: Pain Rated 4-6) Qty: 20 0RF Continued loratadine [Claritin] 10 mg tablet 10 mg PO DAILY cholecalciferol (vitamin D3) 125 mcg (5,000 unit) capsule 125 mcg PO DAILY Osteo Bi-Flex Triple Strength 750 mg-644 mg- 30 mg-1 mg tablet 1 tablet PO BID multivitamin [Multiple Vitamins] Tablet 1 tablet PO DAILY Qty: 90 0RF clotrimazole-betamethasone 1-0.05 % cream 1 applic topical BID Qty: 15 0RF hydrochlorothiazide 25 mg tablet 25 mg PO DAILY Qty: 90 1RF lansoprazole 30 mg capsule,delayed release(DR/EC) 30 mg PO DAILY Qty: 90 1RF Mounjaro 2.5 mg/0.5 mL pen injector 2.5 mg subcut WEEKLY Qty: 2 0RF Patient Comments: Rx Instructions: for 4 weeks metformin 500 mg tablet 500 mg PO DAILY Qty: 180 1RF Patient Comments: AM ezetimibe 10 mg tablet 10 mg PO DAILY Qty: 90 1RF Patient Comments: AM valacyclovir [Valtrex] 500 mg tablet 500 mg PO DAILY Qty: 90 3RF Patient Comments: HS Rx Instructions: May Take 1 tablet BID x 3 days for outbreaks No Action rosuvastatin 20 mg tablet 20 mg PO DAILY Qty: 90 1RF Patient Comments: AM atenolol 25 mg tablet 25 mg PO DAILY Qty: 90 1RF Patient Comments: AM amlodipine 5 mg tablet 5 mg PO DAILY Qty: 90 1RF Patient Comments: AM
== END 2025-06-20 10:57 | disposition home or self-care (01) ==
LOC: ANHSURGERY 06:58 → ANHOB2 11:59
PROVIDERS: PCP Family Medicine; Visit Provider Obstetrics & Gynecology
PROC: (CPT 58661; principal; 2025-06-19 07:30)
DX: R93.89 Abnormal findings on diagnostic imaging of other specified body structures (principal); D25.1 Intramural leiomyoma of uterus; N83.12 Corpus luteum cyst of left ovary; N72 Inflammatory disease of cervix uteri; N83.8 Other noninflammatory disorders of ovary, fallopian tube and broad ligament; N88.8 Other specified noninflammatory disorders of cervix uteri; N73.6 Female pelvic peritoneal adhesions (postinfective); G89.18 Other acute postprocedural pain; E78.5 Hyperlipidemia, unspecified; I10 Essential (primary) hypertension; E11.9 Type 2 diabetes mellitus without complications; K21.9 Gastro-esophageal reflux disease without esophagitis; M17.10 Unilateral primary osteoarthritis, unspecified knee; E66.9 Obesity, unspecified; Z68.30 Body mass index [BMI] 30.0-30.9, adult; Z79.899 Other long term (current) drug therapy; Z79.84 Long term (current) use of oral hypoglycemic drugs; Z79.85 Long-term (current) use of injectable non-insulin antidiabetic drugs; Z98.890 Other specified postprocedural states; Z98.51 Tubal ligation status; Z80.3 Family history of malignant neoplasm of breast; Z80.0 Family history of malignant neoplasm of digestive organs
CPT/HCPCS: 58661; S2900; 82948; 88307; 99199; J0690; A9270; J1171; J1650; J1836; J2003; J2250; J2405; J2704; J3010; J7120